=== PATIENT | female | born 1990 | race African-American/Black ===

== ENCOUNTER 2017-01-31 06:53 | Emergency (ER) | payer OTHER ==
[~2017-01-31] VITALS: Ht 167.6 cm; Wt 92.3 kg
[~2017-01-31 06:53] MED LIST: ADDERALL20 MG PO; BENADRYL50 MG PO; BENTYL10 MG PO; CONCERTA36 MG PO; DIFLUCAN150 MG PO; Feosol PO; LAMICTAL25 MG PO; LEXAPRO10 MG PO; MACROBID100 MG PO; MILK OF MAGNESI10 ML PO; Motrin PO; NAPROSYN500 MG PO; NO MEDS; OXYCODONE H5 MG/5 ML PO; PERCOCET 5/31 TABLET PO; PHENERGAN-CODE120 ML PO; TRAZODONE HCL100 MG PO; TYLENOL650 MG PO; WELLBUTRIN SR100 MG PO; ZITHROMAX Z-PA250 MG PO; ZOFRAN4 MG PO
[2017-01-31] MEDS ORDERED: PEN-VEE K,VEET500 MG PO (07:14)
[2017-01-31] MEDS ORDERED: TYLENOL WITH C1 EACH PO (07:14)
[2017-01-31] MEDS ORDERED: ZOFRAN4 MG PO (07:31)
[2017-01-31 07:51] VITALS: BP 120/79
== END 2017-01-31 07:51 | disposition home or self-care (01) ==
LOC: EME 06:53
DX: O26.892 Other specified pregnancy related conditions, second trimester (principal); K04.7 Periapical abscess without sinus; K03.81 Cracked tooth; K02.9 Dental caries, unspecified; Z3A.14 14 weeks gestation of pregnancy
CPT/HCPCS: 99281; 99283

== ENCOUNTER 2017-02-07 10:14 | Emergency (ER) | payer OTHER ==
[~2017-02-07] VITALS: Ht 167.6 cm; Wt 89.8 kg
[~2017-02-07 10:14] MED LIST changes: +PEN-VEE K,VEET500 MG PO; +TYLENOL WITH C1 EACH PO
[2017-02-07 10:20] VITALS: BP 142/91
[2017-02-07] MEDS ORDERED: VICODIN 5-3001 EACH PO (10:45)
[2017-02-07] MEDS ORDERED: PEN-VEE K,VEET500 MG PO (10:45)
== END 2017-02-07 11:27 | disposition home or self-care (01) ==
LOC: EME 10:14
PROC: 3E0T3BZ Introduction of Anesthetic Agent into Peripheral Nerves and Plexi, Percutaneous Approach (ICD-10-PCS; principal; 2017-02-07)
DX: O99.612 Diseases of the digestive system complicating pregnancy, second trimester (principal); K08.89 Other specified disorders of teeth and supporting structures; O99.332 Smoking (tobacco) complicating pregnancy, second trimester; F17.200 Nicotine dependence, unspecified, uncomplicated; Z3A.15 15 weeks gestation of pregnancy
CPT/HCPCS: 99281; 99283

== ENCOUNTER 2017-07-09 03:37 | Outpatient (CLI) | payer OTHER ==
[~2017-07-09] VITALS: Ht 167.6 cm; Wt 90.9 kg
[~2017-07-09 03:37] MED LIST changes: +VICODIN 5-3001 EACH PO
[2017-07-09 03:51] VITALS: BP 126/75
[2017-07-09] MEDS ORDERED: PRENATAL TABLE1 EAC3 PO (04:16)
[2017-07-09] MEDS ORDERED: FEROSUL325 MG PO (04:18)
[2017-07-09 05:24] LABS: AMPHETAMINE NEGATIVE (500 ng/mL); BARBITURATES NEGATIVE (200 ng/mL); BENZODIAZEPINES NEGATIVE (150 ng/mL); BUPRENORPHINE NEGATIVE (10 ng/mL); COCAINE PRESUMPTIVE POSITIVE (150 ng/mL); METHADONE NEGATIVE (200 ng/mL); METHAMPHETAMINE NEGATIVE (500 ng/mL); OPIATES (MORPHINE) NEGATIVE (100 ng/mL); OXYCODONE NEGATIVE (100 ng/mL); PHENCYCLIDINE NEGATIVE (25 ng/mL); PROPOXYPHENE NEGATIVE (300 ng/mL); THC CANNABINOIDS PRESUMPTIVE POSITIVE (50 ng/mL); TRICYCLIC ANTIDEPRESSANTS NEGATIVE (300 ng/mL)
== END 2017-07-09 07:50 | disposition home or self-care (01) ==
LOC: LDRP-OP 03:37 → 2WEST 03:38 → LDRP-OP 08-29 11:42
PROVIDERS: Advanced Practice Midwife
DX: O47.1 False labor at or after 37 completed weeks of gestation (principal); O26.893 Other specified pregnancy related conditions, third trimester; R10.32 Left lower quadrant pain; R10.31 Right lower quadrant pain; O99.323 Drug use complicating pregnancy, third trimester; F14.90 Cocaine use, unspecified, uncomplicated; F12.90 Cannabis use, unspecified, uncomplicated; O99.343 Other mental disorders complicating pregnancy, third trimester; F31.9 Bipolar disorder, unspecified; Z87.891 Personal history of nicotine dependence; Z3A.37 37 weeks gestation of pregnancy
CPT/HCPCS: 59025; 76818; 81003; 84999; G0378

== ENCOUNTER 2017-07-15 03:42 | Inpatient (IN) | payer OTHER ==
[~2017-07-15] VITALS: Ht 167.6 cm; Wt 90.2 kg
[2017-07-15] VITALS (20 sets, daily range): BP systolic 105–152; BP diastolic 54–86
[~2017-07-15 03:42] MED LIST changes: +FEROSUL325 MG PO; +PRENATAL TABLE1 EAC3 PO
[2017-07-15 05:37] LABS: AMPHETAMINE NEGATIVE (500 ng/mL); BARBITURATES NEGATIVE (200 ng/mL); BENZODIAZEPINES NEGATIVE (150 ng/mL); BUPRENORPHINE NEGATIVE (10 ng/mL); COCAINE NEGATIVE (150 ng/mL); METHADONE NEGATIVE (200 ng/mL); METHAMPHETAMINE NEGATIVE (500 ng/mL); OPIATES (MORPHINE) NEGATIVE (100 ng/mL); OXYCODONE NEGATIVE (100 ng/mL); PHENCYCLIDINE NEGATIVE (25 ng/mL); PROPOXYPHENE NEGATIVE (300 ng/mL); THC CANNABINOIDS PRESUMPTIVE POSITIVE (50 ng/mL); TRICYCLIC ANTIDEPRESSANTS NEGATIVE (300 ng/mL)
[2017-07-15 06:22] LABS: BASOPHIL (%) 0.3 % (0-1); EOSINOPHIL (%) 1.1 % (0-5); EOSINOPHIL COUNT 0.1 K/uL (0-0.3); HEMATOCRIT 28.4 % (36.0-46.0); HEMOGLOBIN 9.7 G/DL (11.9-15.5); IMMATURE GRANULOCYTE (%) 0.5 % (0.0-0.7); LYMPHOCYTE (%) 21.4 % (15-42); LYMPHOCYTE COUNT 1.6 K/uL (1.0-2.8); MCH 31.1 PG (29.0-34.0); MCHC 34.2 G/DL (30.0-36.0); MONOCYTE (%) 9.3 % (3-12); MONOCYTE COUNT 0.7 K/uL (0-0.8); NEUTROPHIL (%) 67.4 % (45-76); PLATELET COUNT 239 K/uL (156-360); RBC DIS.WIDTH-CV 13.2 % (11.8-14.6); RED BLOOD COUNT 3.12 M/uL (3.80-5.20); WHITE BLOOD COUNT 7.4 K/uL (4.1-10.2)
[2017-07-16 05:52] LABS: BASOPHIL (%) 0.3 % (0-1); EOSINOPHIL (%) 1.2 % (0-5); EOSINOPHIL COUNT 0.1 K/uL (0-0.3); HEMATOCRIT 28.5 % (36.0-46.0); HEMOGLOBIN 9.4 G/DL (11.9-15.5); IMMATURE GRANULOCYTE (%) 0.5 % (0.0-0.7); LYMPHOCYTE (%) 20.9 % (15-42); MCH 30.4 PG (29.0-34.0); MCV 92.2 FL (83-99); MONOCYTE (%) 8.4 % (3-12); MONOCYTE COUNT 0.8 K/uL (0-0.8); NEUTROPHIL (%) 68.7 % (45-76); NEUTROPHIL COUNT 6.6 K/uL (1.8-6.4); PLATELET COUNT 231 K/uL (156-360); RBC DIS.WIDTH-CV 13.2 % (11.8-14.6); RBC DIS.WIDTH-SD 44.2 % (39-53); RED BLOOD COUNT 3.09 M/uL (3.80-5.20); WHITE BLOOD COUNT 9.5 K/uL (4.1-10.2)
[2017-07-17 08:46] VITALS: BP 133/88
[2017-07-17] MEDS ORDERED: IBUPROFEN800 MG PO (08:58)
[2017-07-17 13:53] VITALS: BP 154/91
[2017-07-17 14:53] VITALS: BP 123/83
== END 2017-07-17 17:00 | disposition home or self-care (01) | DRG 775 ==
LOC: LDRP-OP 03:42 → 2WEST 03:43 → LDRP-OP 08-29 08:09
PROVIDERS: Advanced Practice Midwife
PROC: 10E0XZZ Delivery of Products of Conception, External Approach (ICD-10-PCS; principal; 2017-07-15)
PROC: 3E0R3BZ Introduction of Anesthetic Agent into Spinal Canal, Percutaneous Approach (ICD-10-PCS; principal; 2017-07-15)
PROC: 00HU33Z Insertion of Infusion Device into Spinal Canal, Percutaneous Approach (ICD-10-PCS; principal; 2017-07-15)
DX: O99.324 Drug use complicating childbirth (principal); O99.824 Streptococcus B carrier state complicating childbirth; O99.344 Other mental disorders complicating childbirth; F31.9 Bipolar disorder, unspecified; F14.10 Cocaine abuse, uncomplicated; F12.90 Cannabis use, unspecified, uncomplicated; D50.9 Iron deficiency anemia, unspecified; Z37.0 Single live birth; Z3A.38 38 weeks gestation of pregnancy
CPT/HCPCS: 84999; 85025; C1755; J0595; J1050; J2540; J3010; J7120